=== PATIENT | female | born 1960 | race Caucasian/White ===

== ENCOUNTER 2017-11-10 09:10 | Day surgery (SDC) | payer BC ==
[2017-11-10 09:15] VITALS: O2SAT 96
--- NOTE | 2017-11-10 09:22 | CPEKG ---
Heart Rate: 73 RR Interval: 822 P-R Interval: 136 QRSD Interval: 80 QT Interval: 396 QTC Interval: 437 P Joseph: 9 QRS Joseph: 71 T Wave Joseph: 70 EKG Severity - BORDERLINE ECG - EKG Impression: SINUS RHYTHM EKG Impression: BORDERLINE T ABNORMALITIES, ANT-LAT LEADS Electronically Signed By: Madonna Villalpando 10-Nov-2017 15:29:43
[2017-11-10] MEDS ORDERED: ASPIRIN 81 MG CHEWABLE TAB PO ONE (09:32)
[2017-11-10] MEDS ORDERED: NS 500 ML IV ONE (09:32)
--- NOTE | 2017-11-10 09:35 | EDPHY ---
H & P Stated Complaint: cp/hx runs of vtach Time Seen by Provider: 11/10/17 09:20 HPI/ROS: CHIEF COMPLAINT: Left-sided chest pain, diaphoresis HISTORY OF PRESENT ILLNESS: 57-year-old female generally healthy arrives via private vehicle complaining of left-sided chest pain and discomfort since waking of 5:00 a.m. today. She is currently asymptomatic but notes that between 5:00 a.m. And 9:00 a.m. She had intermittent waves of nonexertional left -sided chest pain, neck discomfort, diaphoresis, nausea. Patient was admitted at [facility] on 10/01/2017 for similar complaints, had negative troponins, no treadmill testing at that time as it was not available. She subsequently followed up with Dr. Cj New of [facility], had nuclear testing performed 2 weeks ago and was recommended she follow up next week for possible CT angiography or cardiac catheterization. REVIEW OF SYSTEMS: A ten point review of systems was performed and is negative with the exception of the items mentioned in the HPI PAST MEDICAL & SURGICAL HISTORY: Hyperlipidemia SOCIAL HISTORY: Nonsmoker. No drug use. PHYSICAL EXAM (Prior to examination, patient consented to physical exam, hands were washed and my usual and customary physical exam procedures followed) 1) GENERAL: Well-developed, well-nourished, alert and oriented. Appears to be in no acute distress. 2) HEAD: Normocephalic, atraumatic 3) HEENT: Pupils equal, round, reactive to light bilaterally. Sclera anicteric. 4) NECK: Full range of motion, no bruits 5) LUNGS: Clear auscultation bilaterally, no wheezes, no rhonchi, no retractions. 6) HEART: Regular rate and rhythm, no murmur, no heave, no gallop. 7) ABDOMEN: No guarding, no rebound, no focal tenderness, negative McBurney's, negative Loo's, negative Rovsing's, negative peritoneal sign, 8) MUSCULOSKELETAL: Moving all extremities, no focal areas of tenderness, no obvious trauma. No peripheral edema or discoloration. Negative Homans no palpable cord 9) BACK: No CVA tenderness, no midline vertebral tenderness, no fluctuance, no step-off, no obvious trauma, no visual or palpable abnormality. 10) SKIN: No rash, no petechiae. 11) Psychiatric: Patient is oriented X 3, there is no agitation. DIFFERENTIAL DIAGNOSIS: In no particular order, including but not limited to myocardial ischemia, pulmonary embolus, chest wall pain, pleural inflammation and pulmonary infectious causes. - Personal History Current Tetanus/Diphtheria Vaccine: Yes - Medical/Surgical History Hx Asthma: Yes Hx Chronic Respiratory Disease: No Hx Diabetes: No Hx Cardiac Disease: Yes Hx Renal Disease: No Hx Cirrhosis: No Hx Alcoholism: No Hx HIV/AIDS: No Hx Splenectomy or Spleen Trauma: No Other PMH: v tach - Social History Smoking Status: Never smoked Constitutional: Initial Vital Signs Temperature (C) 37 C 11/10/17 09:13 Heart Rate 87 11/10/17 09:13 Respiratory Rate 18 11/10/17 09:13 Blood Pressure 128/75 H 11/10/17 09:13 O2 Sat (%) 96 11/10/17 09:13 O2 Delivery Mode Room Air Allergies/Adverse Reactions: No Known Allergies Allergy (Unverified 11/10/17 09:12) Home Medications: Medication Instructions Recorded Aspirin 81mg (*) 11/10/17 Montelukast Sodium 11/10/17 PROVENTIL HFA 11/10/17 SIMVASTATIN 11/10/17 Medical Decision Making - Diagnostics Imaging Results: Imaging Impressions Chest X-Ray 11/10/17 09:32 Impression: 1. COPD/emphysema/airways disease. 2. No pneumonia. 3. Possible osteoporosis. Consider DEXA scanning. ED Course/Re-evaluation: 9:20 a.m. After evaluating the patient I reviewed her old medical records [facility] and [facility]. Discussed the case with secondary supervising physician Dr. Madonna Villalpando in the ER. Will obtain diagnostic studies and consult with Cardiology. 10:15 a.m.: I reviewed the patient her negative diagnostic studies including negative troponin. Cardiology has been paged. 10:40 a.m.: I consulted with nurse practitioner Gustavo of cardiology recommended patient be admitted the hospitalist, will have Cardiology consult 10:45 a.m. Gustavo in ER to see patient 11:05 a.m.: Informed by Gustavo at the patient will have cardiac catheterization by Dr. Jose Mcclelland at approximately 1:00 p.m. today - Data Points Laboratory Results: Laboratory Results 11/10/17 09:27 11/10/17 09:27 11/10/17 11/10/17 09:27 09:27 WBC 5.17 10^3/uL 10^3/uL (3.80-9.50) RBC 5.13 10^6/uL 10^6/uL (4.18-5.33) Hgb 15.4 g/dL g/dL (12.6-16.3) Hct 44.7 % % (38.0-47.0) MCV 87.1 fL fL (81.5-99.8) MCH 30.0 pg pg (27.9-34.1) MCHC 34.5 g/dL g/dL (32.4-36.7) RDW 13.0 % % (11.5-15.2) Plt Count 228 10^3/uL 10^3/uL (150-400) MPV 8.7 fL fL (8.7-11.7) Neut % (Auto) 53.3 % % (39.3-74.2) Lymph % (Auto) 35.4 % % (15.0-45.0) Collier % (Auto) 6.8 % % (4.5-13.0) Eos % (Auto) 3.5 % % (0.6-7.6) Baso % (Auto) 0.8 % % (0.3-1.7) Nucleat RBC Rel Count 0.0 % % (0.0-0.2) Absolute Neuts (auto) 2.76 10^3/uL 10^3/uL (1.70-6.50) Absolute Lymphs (auto) 1.83 10^3/uL 10^3/uL (1.00-3.00) Absolute Monos (auto) 0.35 10^3/uL 10^3/uL (0.30-0.80) Absolute Eos (auto) 0.18 10^3/uL 10^3/uL (0.03-0.40) Absolute Basos (auto) 0.04 10^3/uL 10^3/uL (0.02-0.10) Absolute Nucleated RBC 0.00 10^3/uL 10^3/uL (0-0.01) Immature Gran % 0.2 % % (0.0-1.1) Immature Gran # 0.01 10^3/uL 10^3/uL (0.00-0.10) Sodium 143 mEq/L mEq/L (135-145) Potassium 4.0 mEq/L mEq/L (3.5-5.2) Chloride 105 mEq/L mEq/L (97-110) Carbon Dioxide 23 mEq/l mEq/l (22-31) Anion Gap 15 mEq/L mEq/L (8-16) BUN 18 mg/dL mg/dL (7-23) Creatinine 0.8 mg/dL mg/dL (0.6-1.0) Estimated GFR > 60 Glucose 103 mg/dL H mg/dL (70-100) Calcium 10.0 mg/dL mg/dL (8.5-10.4) Troponin I < 0.012 ng/mL ng/mL (0.000-0.034) Medications Given: Discontinued Medications Aspirin (Aspirin) 324 mg PO EDNOW ONE Stop: 11/10/17 09:33 Last Admin: 11/10/17 09:36 Dose: 324 mg Sodium Chloride (Ns) 500 mls @ 1,000 mls/hr IV EDNOW ONE PRN Reason: Protocol Stop: 11/10/17 10:01 Last Admin: 11/10/17 09:36 Dose: 500 mls Departure - Departure Disposition: To OP Cath/Surgery Clinical Impression: Chest pain Qualifiers: Chest pain type: other chest pain Qualified Code(s): R07.89 - Other chest pain ; R07.8 - Other chest pain Condition: Fair Referrals: Renita Garrett MD [Primary Care Provider] - As per Instructions
[2017-11-10 09:37] LABS: PLATELET COUNT 228 10^3/uL (150-400)
[2017-11-10 10:35] VITALS: BP 132/67; PULSE 74; RESP 15
[2017-11-10] MEDS ORDERED: FAMOTIDINE 20 MG TAB PO ONE ×2 (11:05)
[2017-11-10] MEDS ORDERED: ACETAMINOPHEN 325 MG TAB PO PRN ×2 (11:05→12:12)
[2017-11-10] MEDS ORDERED: NITROGLYCERIN 0.4 MG BTL SL PRN ×2 (11:05→12:12)
[2017-11-10] MEDS ORDERED: DIAZEPAM 5 MG TAB PO ONE ×2 (11:05)
[2017-11-10] MEDS ORDERED: diphenhydrAMINE 25 MG CAP PO ONE ×2 (11:05)
[2017-11-10] MEDS ORDERED: TEMAZEPAM 15 MG CAP PO PRN ×2 (11:05→12:12)
[2017-11-10] MEDS ORDERED: NS 1,000 ML IV SCH ×2 (11:15→11:30)
[2017-11-10 11:19] LABS: INR 1.02 (0.83-1.16); PROTIME(PATIENT) 13.6 SEC (12.0-15.0)
[2017-11-10 11:27] VITALS: TEMP 97.9
[2017-11-10] MEDS ORDERED: fentaNYL 100 MCG/2 ML INJ ONE (11:39)
[2017-11-10] MEDS ORDERED: LIDOCAINE 1% 300 MG/30 ML SDV ONE (11:39)
[2017-11-10] MEDS ORDERED: IOPAMIDOL (ISOVUE-370) 150 ML BTL IV ONE (11:40)
[2017-11-10] MEDS ORDERED: VERAPAMIL 5 MG/2 ML VIAL ONE (11:40)
[2017-11-10] MEDS ORDERED: HEPARIN 10,000 UNIT/10 ML MDV (1,000 UNIT/ML) ONE (11:40)
[2017-11-10] MEDS ORDERED: MIDAZOLAM 2 MG/2 ML VIAL ONE (11:40)
--- NOTE | 2017-11-10 12:25 | PDHPUP ---
History & Physical Update H&P update statement: This history and physical update is based on an assessment of the patient which was completed after admission or registration (within 24 hours), but prior to the surgery/procedure. H&P update: H&P reviewed & patient examined, no change in patient's condition since H&P completed
--- NOTE | 2017-11-10 12:25 | PDPROPOC ---
Sedation Plan of Care Sedation Plan of Care: vital signs stable, mental status noted, patient educated of risks, benefits, alternatives, patient can tolerate sedation ASA Classification: ASA 2 Planned drugs: fentanyl, midazolam Mallampati Score: Class 1 Mallampati Reference Image: Patient passed 3-3-2 rule?: Yes
--- NOTE | 2017-11-10 12:55 | PDDXCAT ---
Diagnostic Cath Note - . Date: 11/10/17 [employer] Buffer: [employer] Indication: CCC Class III and IV angina on medical treatment, other (abnormal ETT with non-sustained VT) - Procedure Access: right wrist Procedure: left heart catheterization, coronary angiography, left ventriculogram - Materials Left Heart Cath size: 5F Left Heart Cath materials: pigtail, other ([email or web address]) - Findings-Left Heart Catheterization LM: Normal LAD: Normal LCX: Normal RCA: Dominant: Normal EDP: 10 mm of mercury LVEF: 65 Wall motion: Normal Complications: None Estimated blood loss: <50ml Closure method: TR Band Assessment: Normal coronary arteries. Normal LV function. Plan: Aggressive primary prevention. Clinical follow-up Dr. Cj New. Patient Problems: Problems Problem Status Onset Chest pain Acute
--- NOTE | 2017-11-10 15:14 | GCON ---
[f rep st] CONSULTATION CARDIOLOGY CONSULTATION INDICATION FOR CARDIOLOGY CONSULTATION: Episodes of chest pressure with associated nausea and some diaphoresis. Patient with known history of recent abnormal exercise treadmill testing. HISTORY OF PRESENT ILLNESS: The patient is a 57-year-old female. She is known to our practice, her primary pier hand helper, Dr. Cj New. She informs me since september, she has been have having episodes of midsternal chest pressure, occasional radiation into the neck, with associated symptoms of diaphoresis and nausea since september. She reports that they come on either at rest or with stress. She reports these symptoms had been severe in mid September, that she was admitted to [facility], in which she did have a cardiac evaluation done, with no ischemia noted by exercise treadmill testing. Post hospitalization, she did see Dr. New at our office, in which she underwent an MPI study. It was noted on stress testing that she did have ST depression on exercise treadmill testing, but her MPI nuclear imaging was normal. She also was noted to have salvos of PVCs and short bursts of nonsustained ventricular tachycardia at peak exercise. She had recently seen Dr. New on the , 2 days ago, post stress testing, in which he felt that further evaluation for cardiac ischemia should have been done. He had given her this decision of either undergoing cardiac angiogram or CT coronary angiogram. She was discussing it. She went home and was discussing it with her . She had decided that she felt to undergo a CT angio initially. Our office has been arranging, attempting to get her approved by her insurance. She does report this morning she had very intense similar symptoms that she has had in the past, starting approximately 5 a.m. and going on until about 9 a.m. Due to these symptoms and feeling that these were the worst that she has had since the starting of these episodes, she came to [facility] for further evaluation. Upon arrival, an electrocardiogram was done, showing sinus rhythm, with borderline T-wave abnormalities in the anterior lateral leads. Initial laboratory studies showed a negative troponin of less than 0.012. No electrolyte or renal function. She reports prior to these symptoms since September, she has had no fevers, chills or night sweats. She does feel occasionally that her heart rate is racing with these symptoms, but she has experienced no lightheadedness, near-syncope, or syncopal events. Denies any PND, orthopnea, edema. Denies any symptoms suggestive of TIA or CVA. She has cardiac risk factors that include hyperlipidemia and a family history of coronary artery disease, reporting maternal grandmother and aunts and great aunts passing away in their mid 50s from heart disease. PAST MEDICAL HISTORY: Includes hypercholesteremia and basal cell carcinoma, for which she was treated in 2012. PAST SURGICAL HISTORY: Includes arthroscopic knee surgery, bilateral , hernia repair and knee reconstruction. FAMILY HISTORY: As mentioned above, reporting maternal grandmother and a few aunts have had early deaths thought due to coronary artery disease in their 50s. 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 She is . She has 3 children in college, who are reported all alive and well. She denies any history of tobacco abuse. She reports occasional glass of wine a week. Denies any illicit drug use. ALLERGIES: Patient has no known drug allergies. MEDICATIONS: At home include fish oil 1000 mg p.o. daily, multivitamin 1 tablet daily, Singulair 10 mg p.o. h.s., vitamin D3 1000 units p.o. daily, calcium carbonate 500 mg p.o. daily, aspirin 81 mg p.o. h.s., simvastatin 10 mg p.o. h.s., albuterol 1-2 puffs inhaled daily p.r.n. REVIEW OF SYSTEMS: A 10-point review of systems done on the patient. All negative, except as mentioned above. PHYSICAL EXAMINATION: GENERAL: Thin, well-groomed female. She is alert and oriented to person, place, time, and situation. Appears to be in no acute distress at this time. VITAL SIGNS: Current blood pressure is 132/67, heart rate of 74, sinus rhythm on the monitor, respirations 15, saturating 96% on room air, temperature 36.6 degrees Celsius. HEENT: Head is normocephalic. Lips and tongue are pink and moist, with no signs of cyanosis. Conjunctivae pink. NECK: Trachea is midline, +2 carotid pulses bilateral. No auscultated bruits, no jugular vein distention. RESPIRATORY: Lungs are clear to auscultation, no rhonchi, rales or wheezes. No accessory muscle use. No intercostal muscle retraction noted. CARDIAC: Regular rate, regular rhythm, S1 , S2. No S3, S4, gallops, rubs or murmurs noted. ABDOMEN: Soft, nontender, bowel sounds x4 quadrants. No organomegaly. No palpable masses. SKIN: [place], warm, dry, no cyanosis, no clubbing, no peripheral edema. VASCULAR: +2 carotids bilateral, +2 radials bilateral, +2 dorsal pedal and posterior tibial pulses bilateral. Positive Luke's test on both hands. LABORATORY STUDIES: Laboratory studies drawn today showing WBC of 5.17, hemoglobin 15.4, hematocrit of 44.7, platelet count 228. INR 1.02. Sodium 143 , potassium 4.0, chloride 105, CO2 23, BUN 18, creatinine 0.8, glucose 103, calcium 10.0, magnesium 2.1. Troponin less than 0.012. STUDIES: Electrocardiogram as mentioned above. Chest x-ray, showing possible COPD, possible airway disease, no pneumonia, no acute cardiopulmonary process. ASSESSMENT AND PLAN: 1. Chest pressure: Patient reporting a long history of atypical chest pressure. Recent hospitalization at [facility] and has recently undergone ETT MPI study at our office. It was noted that she did have some J point depression suggesting possible ischemia, but her MPI study was normal. However , she did have salvos of PVC and a short run of nonsustained VT at peak exercise. Due to her ongoing symptoms and abnormal stress testing, I do think it would be valid for her to be further evaluated for cardiac ischemia at this time. We have discussed the possibility of coronary angio CT versus cardiac catheterization. She and her have chosen that she would like to proceed with coronary angiogram at this time. Risks and benefits were explained to the patient. She verbalizes understanding. We will plan for her to have this done in an hour or 2, to be performed by Dr. Jose Mcclelland. She is currently pain- free. She has been given aspirin in the ER. Will hold off on any anticoagulation at this time due to negative troponin. 2. Hyperlipidemia: Patient with history of hyperlipidemia. Has recently been started on simvastatin. She will need repeated blood work in 6-8 weeks. 3. Thank you for this cardiology consultation. We will be glad to follow along with you. Further recommendations coming post catheterization. /[id number]/MODL MTDD
== END 2017-11-10 17:35 | disposition home or self-care (01) ==
LOC: FCATH 11:29
PROVIDERS: ATTEND Internal Medicine Interventional Cardiology
PROC: 4A023N7 Measurement of Cardiac Sampling and Pressure, Left Heart, Percutaneous Approach (ICD-10-PCS; principal; 2017-11-10)
PROC: B2111ZZ Fluoroscopy of Multiple Coronary Arteries using Low Osmolar Contrast (ICD-10-PCS; principal; 2017-11-10)
PROC: B2151ZZ Fluoroscopy of Left Heart using Low Osmolar Contrast (ICD-10-PCS; principal; 2017-11-10)
DX: R07.89 Other chest pain (principal); E78.5 Hyperlipidemia, unspecified; Z85.828 Personal history of other malignant neoplasm of skin; Z82.49 Family history of ischemic heart disease and other diseases of the circulatory system
CPT/HCPCS: 71046; 93005; 93458; 99285; C1769; J1644; J2250; J3010; Q9967

== ENCOUNTER → 2017-12-09 | Outpatient (CLI) | payer BC | LOC: FIMAGING 15:00 | PROVIDERS: ATTEND Internal Medicine | DX: Z13.820 Encounter for screening for osteoporosis (principal); M81.0 Age-related osteoporosis without current pathological fracture; Z78.0 Asymptomatic menopausal state ==